=== PATIENT | male | born 1990 | race Caucasian/White ===

== ENCOUNTER 2016-11-27 13:46 | Emergency (ER) | payer OTHER ==
[~2016-11-27] VITALS: Ht 175.3 cm; Wt 64.0 kg
[2016-11-27 13:59] VITALS: BP 117/69; PULSE 111; RESP 19; TEMP 99; O2SAT 97
[2016-11-27] MEDS ORDERED: LANTUS2P SQ ×2 (14:04)
[2016-11-27] MEDS ORDERED: HUMALOG SQ ×3 (14:04→14:07)
[2016-11-27] MEDS ORDERED: ACETAMINOPHEN 500 MG CPLT PO ONE (14:45)
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
== END 2016-11-27 16:31 | disposition home or self-care (01) ==
LOC: NEPD 13:46
DX: R07.9 Chest pain, unspecified (principal); E10.9 Type 1 diabetes mellitus without complications; Z72.0 Tobacco use; V43.62XA Car passenger injured in collision with other type car in traffic accident, initial encounter; Y93.89 Activity, other specified; Y92.410 Unspecified street and highway as the place of occurrence of the external cause; Y99.8 Other external cause status
CPT/HCPCS: 71010; 99283